=== PATIENT | female | born 1995 | race Caucasian/White ===

== ENCOUNTER 2017-10-15 13:00 | Outpatient (CLI) | payer OTHER ==
[2017-10-15 14:05] LABS: Hematocrit 43.5 % (36.0-47.0); Mean Platelet Volume 7.1 fL (7.4-10.4); Red Blood Cell (RBC) Count 4.64 mill/uL (4.20-5.40); White Blood Cell (WBC) Count 8.3 thou/uL (4.8-10.8)
== END 2017-10-15 13:01 | disposition home or self-care (01) ==
LOC: LABBT 13:00
PROVIDERS: ATTEND Orthopaedic Surgery
DX: Z01.812 Encounter for preprocedural laboratory examination (principal); S53.32XA Traumatic rupture of left ulnar collateral ligament, initial encounter
CPT/HCPCS: 84703; 85027

== ENCOUNTER → 2017-10-16 | Day surgery (SDC) | payer OTHER ==
[2017-10-15 13:19] VITALS: BMI 24.0
[~2017-10-16] MED LIST: Bupivacaine/Epinephrine 0.25% 30 ML VIAL ONE; CEFAZOLIN/Water 2 GM/20 ML SYRINGE ONE; Dexamethasone 20 MG/5 ML VIAL ONE; Fentanyl 100 MCG/2 ML VIAL ONE; Fentanyl 250 MCG/5 ML VIAL ONE; Lidocaine 1% PF 5 ML VIAL ONE; Midazolam HCl 2 mg/2 ml Vial ONE; Ondansetron HCl/PF 4 MG/2 ML Vial ONE; PHENYLEPHRINE-NS 100 MCG/ML 10 ML SYRINGE ONE; Propofol 200 MG/20 ML VIAL ONE; diphenhydrAMINE 50 MG/ML VIAL ONE
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
== END ==
LOC: SDC 05:35
PROVIDERS: ATTEND Orthopaedic Surgery
PROC: 0MQ90ZZ Repair Right Upper Extremity Bursa and Ligament, Open Approach (ICD-10-PCS; principal; 2017-10-16)
DX: S53.441A Ulnar collateral ligament sprain of right elbow, initial encounter (principal); W18.30XA Fall on same level, unspecified, initial encounter
CPT/HCPCS: 76001; 96374; C1776; J0131; J1100; J1200; J2001; J2250; J2405; J2704; J3010

== ENCOUNTER 2018-08-05 18:22 | Inpatient (IN) | payer OTHER ==
[~2018-08-05 18:22] MED LIST changes: -Bupivacaine/Epinephrine 0.25% 30 ML VIAL ONE; -CEFAZOLIN/Water 2 GM/20 ML SYRINGE ONE; -Dexamethasone 20 MG/5 ML VIAL ONE; -Fentanyl 100 MCG/2 ML VIAL ONE; -Fentanyl 250 MCG/5 ML VIAL ONE; +ISOVUE-370 76%-LOCM 1 ML ONE; -Lidocaine 1% PF 5 ML VIAL ONE; -Midazolam HCl 2 mg/2 ml Vial ONE; -Ondansetron HCl/PF 4 MG/2 ML Vial ONE; -PHENYLEPHRINE-NS 100 MCG/ML 10 ML SYRINGE ONE; -Propofol 200 MG/20 ML VIAL ONE; -diphenhydrAMINE 50 MG/ML VIAL ONE
[2018-08-05 18:41] LABS: #Basophils 0.1 thou/uL (0.0-0.2); #Eosinphils 0.1 thou/uL (0.0-0.7); #Lymphocytes 4.4 thou/uL (1.20-3.40); #Neutrophils 5.2 thou/uL (1.40-6.50); %Eosinophils 1.2 % (0.0-10.0); %Lymphocytes 40.3 % (21.0-51.0); %Monocytes 9.2 % (0.0-10.0); %Neutrophils 48.3 % (42.0-75.0); Hemoglobin 13.6 g/dL (12.0-16.0); Mean Corpuscular HGB CONC 33.1 g/dL (32.0-36.0); Mean Corpuscular Hemoglobin 30.6 pg (27.0-31.0); Mean Corpuscular Volume 92.3 fL (78.0-98.0); Mean Platelet Volume 7.4 fL (7.4-10.4); Platelet Count 291 thou/uL (130-400); RBC Distribution Width 11.5 % (11.5-14.5); Red Blood Cell (RBC) Count 4.46 mill/uL (4.20-5.40); White Blood Cell (WBC) Count 10.9 thou/uL (4.8-10.8)
[2018-08-05 18:47] LABS: PTT 28.8 SEC (22.9-36.1)
[2018-08-05] MEDS ORDERED: HYDROcodone/Acetaminophen 10/325 mg Tablet ONE (18:51)
[2018-08-05 18:53] LABS: BHCG - Serum Negative (NEGATIVE); Pregs Control Background? CLEAR/WHITE (CLR/WHITE); Pregs Control Bar Appear? YES (CONTROL BAR)
[2018-08-05 19:04] LABS: ALT (SGPT) 23 U/L (8-55); AST (SGOT) 26 U/L (5-34); Albumin 4.4 g/dL (3.5-5.0); Alcohol Less than 10 mg/dL (Less than 10); Alkaline Phosphatase 63 U/L (40-150); Anion Gap 14 mmol/L (10-20); BUN (Urea Nitrogen) 12 mg/dL (7.0-18.7); Bilirubin, Total 0.3 mg/dL (0.2-1.2); Calc. Creatinine Clearance 0 mL/min (70-130); Calcium 9.6 mg/dL (7.8-10.44); Carbon Dioxide 20 mmol/L (22-29); Chloride 106 mmol/L (98-107); Estimated GFR-MDRD Greater than 90; Globulin 2.5 g/dL (2.4-3.5); Glucose 106 mg/dL (70-105); Lipase 19 U/L (8-78); Potassium 3.3 mmol/L (3.5-5.1); Protein, Total 6.9 g/dL (6.0-8.3); Sodium 137 mmol/L (136-145)
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
[2018-08-05] MEDS ORDERED: Ondansetron HCl/PF 4 MG/2 ML Vial ONE (20:13)
[2018-08-05] MEDS ORDERED: Morphine 2 MG/ML SYRINGE ONE (20:24)
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
[2018-08-05] MEDS ORDERED: Adacel (T-DAP) 0.5 ML VIAL ONE (21:58)
[2018-08-05] MEDS ORDERED: Dextrose 50% Abboject 50 ML SYRINGE SLOW IVP PRN (22:38)
[2018-08-05] MEDS ORDERED: Ondansetron HCl/PF 4 MG/2 ML Vial IVP PRN (22:38)
[2018-08-05] MEDS ORDERED: HYDROcodone/Acetaminophen 10/325 mg Tablet PO PRN (22:38)
[2018-08-05] MEDS ORDERED: Dextrose 5% in Water 1,000 ML IV PRN (22:38)
[2018-08-05] MEDS ORDERED: traMADol HCl 50 MG TAB PO PRN (22:45)
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
[2018-08-05 23:58] VITALS: BMI 24.8
[2018-08-06] MEDS: Ibuprofen 800 MG TAB PO SCH ×2 (00:16→06:43)
[2018-08-06] MEDS: Acetaminophen 325 MG TAB PO SCH ×3 (00:16→11:28)
[2018-08-06] MEDS: Morphine 4 MG/ML VIAL SLOW IVP PRN ×2 (00:19→04:04)
[2018-08-06] MEDS: traMADol HCl 50 MG TAB PO SCH ×3 (00:27→11:28)
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
[2018-08-06 04:04] LABS: #Monocytes 1.1 thou/uL (0.11-0.59); #Neutrophils 9.6 thou/uL (1.40-6.50); %Basophils 0.1 % (0.0-1.0); %Eosinophils 0.2 % (0.0-10.0); %Lymphocytes 8.3 % (21.0-51.0); %Monocytes 9.3 % (0.0-10.0); %Neutrophils 82.1 % (42.0-75.0); Hemoglobin 13.3 g/dL (12.0-16.0); Mean Corpuscular HGB CONC 34.3 g/dL (32.0-36.0); Mean Corpuscular Hemoglobin 31.7 pg (27.0-31.0); Mean Corpuscular Volume 92.3 fL (78.0-98.0); Mean Platelet Volume 7.7 fL (7.4-10.4); Platelet Count 224 thou/uL (130-400); RBC Distribution Width 11.5 % (11.5-14.5); Red Blood Cell (RBC) Count 4.19 mill/uL (4.20-5.40); White Blood Cell (WBC) Count 11.7 thou/uL (4.8-10.8)
[2018-08-06 05:14] LABS: Anion Gap 13 mmol/L (10-20); BUN (Urea Nitrogen) 8 mg/dL (7.0-18.7); Calc. Creatinine Clearance 154 mL/min (70-130); Carbon Dioxide 23 mmol/L (22-29); Chloride 106 mmol/L (98-107); Estimated GFR-MDRD Greater than 90; Glucose 109 mg/dL (70-105); Potassium 4.1 mmol/L (3.5-5.1); Sodium 138 mmol/L (136-145)
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
[2018-08-06] MEDS ORDERED: Venlafaxine HCl XR 75 MG CAP PO SCH (09:00)
[2018-08-06] MEDS ORDERED: Famotidine 20 MG TAB PO SCH (09:00)
[2018-08-06 12:10] VITALS: TEMP 99.5
[2018-08-06 17:30] VITALS: BP 101/60
== END 2018-08-06 16:03 | disposition home or self-care (01) | DRG 41 ==
LOC: ERS 18:22 → IMCU/EMU 23:39
PROVIDERS: ADMIT Surgery; ATTEND Surgery
PROC: 0JQ00ZZ Repair Scalp Subcutaneous Tissue and Fascia, Open Approach (ICD-10-PCS; principal; 2018-08-06)
PROC: 0JQD0ZZ Repair Right Upper Arm Subcutaneous Tissue and Fascia, Open Approach (ICD-10-PCS; 2018-08-06)
DX: S06.5X1A Traumatic subdural hemorrhage with loss of consciousness of 30 minutes or less, initial encounter (principal); S22.089A Unspecified fracture of T11-T12 vertebra, initial encounter for closed fracture; V43.52XA Car driver injured in collision with other type car in traffic accident, initial encounter; Y92.410 Unspecified street and highway as the place of occurrence of the external cause; F41.9 Anxiety disorder, unspecified; F32.9 Major depressive disorder, single episode, unspecified; S41.111A Laceration without foreign body of right upper arm, initial encounter; S01.91XA Laceration without foreign body of unspecified part of head, initial encounter
CPT/HCPCS: 36415; 70450; 71260; 72125; 74177; 80048; 80053; 80307; 83690; 84703; 85025; 85610; 85730; 86850; 86900; 86901; 90715; 96361; 96374; 96375; G0390; G8978-GP-CM; G8979-GP-CK; G8987-GO-CI; G8988-GO-CI; G8989-GO-CI; J2270; J2405

== ENCOUNTER 2018-08-26 09:38 | Outpatient (CLI) | payer OTHER ==
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
== END 2018-08-26 09:39 | disposition home or self-care (01) ==
LOC: TBSIIMAG 09:38
PROVIDERS: ATTEND Neurological Surgery
DX: S06.5X1A Traumatic subdural hemorrhage with loss of consciousness of 30 minutes or less, initial encounter (principal)
CPT/HCPCS: 70450

== ENCOUNTER 2020-06-16 13:05 | Outpatient (CLI) | payer OTHER ==
--- NOTE | 2020-06-16 13:28 | RAD ---
Exam: Thoracic spine 3 views HISTORY: [place] COMPARISON: none FINDINGS: AP, lateral and a spot view of the thoracolumbar junction demonstrate 12 thoracic type vert ebra. Thoracic spine vertebral body heights are maintained. No fractures or malalignment. Disc space heights are preserved. IMPRESSION: No radiographic abnormalities are significant degenerative change.
== END 2020-06-16 13:06 | disposition home or self-care (01) ==
LOC: BICRAD 13:05
PROVIDERS: ATTEND Internal Medicine
DX: M54.9 Dorsalgia, unspecified (principal)
CPT/HCPCS: 72072

== ENCOUNTER 2021-02-15 12:49 | Outpatient (CLI) | payer OTHER | END 2021-02-15 12:50 | disposition home or self-care (01) | LOC: NM 12:49 | PROVIDERS: ATTEND Internal Medicine | DX: R10.9 Unspecified abdominal pain (principal) | CPT/HCPCS: 78227; A9537 ==

== ENCOUNTER 2021-03-12 08:23 | Outpatient (CLI) | payer OTHER | END 2021-03-12 08:24 | disposition home or self-care (01) | LOC: BICMRI 08:23 | PROVIDERS: ATTEND Orthopaedic Surgery Hand Surgery | DX: M25.731 Osteophyte, right wrist (principal); M25.732 Osteophyte, left wrist ==

== ENCOUNTER 2021-05-03 14:23 | Outpatient (CLI) | payer OTHER ==
[2021-05-03 16:26] LABS: #Eosinphils 0.1 10x3/uL (0.0-0.5); #Monocytes 0.5 10x3/uL (0.0-1.1); #Neutrophils 3.2 10x3/uL (1.5-8.4); %Basophils 0.5 % (0.0-2.0); %Eosinophils 0.9 % (0.0-6.0); %Lymphocytes 39.9 % (18.0-47.0); %Monocytes 7.6 % (0.0-10.0); %Neutrophils 50.9 % (40.0-75.0); Hemoglobin 13.6 g/dL (12.0-15.5); Mean Corpuscular HGB CONC 33.3 g/dL (32.0-36.0); Mean Corpuscular Volume 90.1 fl (81.6-98.3); Mean Platelet Volume 10.8 fl (7.4-10.4); Platelet Count 236 10x3/uL (150-450); RBC Distribution Width 11.9 % (11.5-14.5); Red Blood Cell (RBC) Count 4.54 10x6/uL (3.90-5.03); White Blood Cell (WBC) Count 6.3 10x3/uL (3.5-10.5)
[2021-05-03 16:30] LABS: Pregs Control Background? CLEAR/WHITE (CLR/WHITE); Pregs Control Bar Appear? YES (CONTROL BAR)
[2021-05-03 16:32] LABS: BHCG - Serum Negative (NEGATIVE)
== END 2021-05-03 14:24 | disposition home or self-care (01) ==
LOC: LABBT 14:23
PROVIDERS: ATTEND Orthopaedic Surgery Hand Surgery
DX: Z01.812 Encounter for preprocedural laboratory examination (principal); M25.731 Osteophyte, right wrist; M65.4 Radial styloid tenosynovitis [de Quervain]; M79.2 Neuralgia and neuritis, unspecified
CPT/HCPCS: 84703; 85025

== ENCOUNTER 2021-05-08 06:23 | Day surgery (SDC) | payer OTHER ==
[2021-05-07 13:15] VITALS: BMI 22.2
[2021-05-08] MEDS ORDERED: Bupivacaine PF 0.5% 30 ML VIAL ONE (09:42)
[2021-05-08] MEDS ORDERED: Bacitracin Zinc Ointment 30 gm TUBE ONE (09:42)
[2021-05-08] MEDS ORDERED: Betamet Acet/Betamet Na Ph 30 MG/5 ML VIAL ONE (09:42)
[2021-05-08] MEDS ORDERED: Midazolam HCl 2 mg/2 ml Vial ONE ×2 (09:51→10:02)
[2021-05-08] MEDS ORDERED: Fentanyl 100 MCG/2 ML VIAL ONE ×2 (09:51→10:02)
[2021-05-08] MEDS ORDERED: PROPOFOL 40 ML ONE (10:03)
[2021-05-08] MEDS ORDERED: Ondansetron PF 4 MG/2 ML Vial ONE (10:23)
[2021-05-08] MEDS ORDERED: Bupivacaine HCl 0.5%/Epinephrine 1:200,000/PF 30 ml Vial ONE (10:23)
[2021-05-08] MEDS ORDERED: Lidocaine 1% PF 5 ML VIAL ONE (10:23)
[2021-05-08] MEDS ORDERED: Ketorolac Tromethamine 30 MG/ML VIAL ONE (12:32)
== END 2021-05-08 14:15 | disposition home or self-care (01) ==
LOC: SDC 06:23
PROVIDERS: ATTEND Orthopaedic Surgery Hand Surgery
PROC: 01N60ZZ Release Radial Nerve, Open Approach (ICD-10-PCS; principal; 2021-05-08)
PROC: 0LB70ZZ Excision of Right Hand Tendon, Open Approach (ICD-10-PCS; principal; 2021-05-08)
DX: M25.731 Osteophyte, right wrist (principal); M65.4 Radial styloid tenosynovitis [de Quervain]; Z79.899 Other long term (current) drug therapy; Z88.5 Allergy status to narcotic agent
CPT/HCPCS: 76000; J0690; J0702; J1885; J2250; J2405; J2704; J3010; S0020